=== PATIENT | male | born 1955 | race Caucasian/White ===

== ENCOUNTER 2018-03-18 08:27 | Outpatient (CLI) | payer BC ==
--- NOTE | 2018-03-18 10:26 | RAD ---
TWO VIEW CHEST SERIES: Indication: Dyspnea. FINDINGS: There is patchy left basilar opacity. Right lung is clear. Cardiac silhouette is within normal limits of size. There is mild elevation of the right hemidiaphragm. Mild osseous degenerative change is pre sent. IMPRESSION: Mild patchy left basilar density could relate to volume loss or pericardial fat pad. POS: [facility]
== END 2018-03-18 08:28 | disposition home or self-care (01) ==
LOC: RAD 08:27
PROVIDERS: ATTEND Internal Medicine Critical Care Medicine
DX: R06.00 Dyspnea, unspecified (principal); J98.4 Other disorders of lung
CPT/HCPCS: 71046

== ENCOUNTER 2018-05-29 07:33 | Outpatient (CLI) | payer BC ==
--- NOTE | 2018-05-29 10:27 | MRI ---
MRI LUMBAR SPINE WITHOUT CONTRAST: Date 05/29/18 HISTORY: Lumbar radiculopathy. Bilateral hamstring pain. COMPARISON: None. TECHNIQUE: MRI lumbar spine is performed without intravenous Gadolinium administration. Multisequential, multipl phyllis imaging is performed. FINDINGS: There is appropriate T1 marrow signal intensity of the lumbar vertebra. Intrinsic T1 and T2 hyperinte nsities throughout the lumbar spine representing fatty marrow versus hemangiomas. No significant STIR hyperintensity to suggest vertebral body edema or ligamentous injury. Symmetric signal intensity of the psoas muscles. Appropriate signal intensity of the visualized solid organs. Conus medullaris terminates at mid L1 level. T12-L1: Adequate disc hydration. No significant central canal stenosis. Neural foramina are patent. L1-L2: Adequate disc hydration. No significant central canal stenosis. Neural foramina are patent. L2-L3: Adequate disc hydration. Generalized disc bulge results in mid central canal stenosis. Right neural f oramen is patent. Mild left foraminal narrowing. L3-L4: Generalized disc bulge with a left paracentral component. Ligamentum flavum thickening and facet hype rtrophy are present. Overall, mild central canal stenosis. There is disc material abutting and partia lly obscuring bilateral traversing L4 nerve roots. Mild right and moderate left foraminal narrowing. L4-L5: Mild loss of disc space height. Generalized disc bulge, ligamentum flavum thickening, and facet hyper trophy result in minimal central canal stenosis. Minimal encroachment upon both subarticular zones. D isc material abuts, but does not obscure either traversing L5 nerve root. Moderate bilateral foramina l narrowing. L5-S1: Moderate loss of disc space height. There is a generalized disc bulge. There is no significant centra l canal stenosis. There is bilateral facet hypertrophy. There is narrowing of the left subarticular z one with partial obscuration of traversing left S1 nerve root. Moderate to severe right and severe le ft foraminal narrowing. IMPRESSION: 1. Degenerative disc disease at L4-L5 and L5-S1 as described above. There is significant bilateral f oraminal narrowing at L5-S1. 2. Narrowing of the subarticular zone at L3-L4, L4-L5, and L5-S1 as described above. POS: [facility]
== END 2018-05-29 07:34 | disposition home or self-care (01) ==
LOC: TBSIIMAG 07:33
PROVIDERS: ATTEND Orthopaedic Surgery
DX: M51.16 Intervertebral disc disorders with radiculopathy, lumbar region (principal); M51.37 Other intervertebral disc degeneration, lumbosacral region; M99.83 Other biomechanical lesions of lumbar region; M48.061 Spinal stenosis, lumbar region without neurogenic claudication; M48.07 Spinal stenosis, lumbosacral region
CPT/HCPCS: 72148

== ENCOUNTER 2020-11-15 10:40 | Outpatient (CLI) | payer BC | END 2020-11-15 10:41 | disposition home or self-care (01) | LOC: BICRAD 10:40 | PROVIDERS: ATTEND Family Medicine | DX: R06.02 Shortness of breath (principal); J98.4 Other disorders of lung | CPT/HCPCS: 71046 ==

== ENCOUNTER 2021-03-02 10:53 | Outpatient (CLI) | payer BC | END 2021-03-02 10:54 | disposition home or self-care (01) | LOC: BICRAD 10:53 | PROVIDERS: ATTEND Family Medicine | DX: R06.02 Shortness of breath (principal) | CPT/HCPCS: 71046 ==

== ENCOUNTER 2021-04-25 06:50 | Outpatient (CLI) | payer BC ==
[2021-04-25 08:52] LABS: Hemoglobin 14.5 g/dL (13.5-17.5)
[2021-04-25 10:14] LABS: Anion Gap 13 mmol/L (10-20); BUN (Urea Nitrogen) 16 mg/dL (8.4-25.7); Calc. Creatinine Clearance 0 mL/min (70-130); Calcium 9.5 mg/dL (7.8-10.44); Carbon Dioxide 26 mmol/L (23-31); Chloride 108 mmol/L (98-107); Glucose 92 mg/dL (80-115); Potassium 4.5 mmol/L (3.5-5.1); Sodium 142 mmol/L (136-145)
[2021-04-25 20:01] LABS: SARS-CoV-2 PCR by NAA Not Detected (NotDetected)
== END 2021-04-25 06:51 | disposition home or self-care (01) ==
LOC: LABBT 06:50
PROVIDERS: ATTEND Specialist
DX: Z01.818 Encounter for other preprocedural examination (principal); Z20.822 Contact with and (suspected) exposure to COVID-19
CPT/HCPCS: 70486; 80048; 85014; 85018; 93005; 93010; U0003; U0005

== ENCOUNTER 2022-12-05 08:33 | Outpatient (CLI) | payer BC ==
[2022-12-05 10:03] LABS: #Basophils 0.1 10x3/uL (0.0-0.2); #Eosinphils 0.2 10x3/uL (0.0-0.5); #Monocytes 0.8 10x3/uL (0.0-1.1); #Neutrophils 4.3 10x3/uL (1.5-8.4); %Basophils 0.9 % (0.0-2.0); %Eosinophils 2.5 % (0.0-6.0); %Lymphocytes 21.5 % (18.0-47.0); %Neutrophils 62.4 % (40.0-75.0); Hemoglobin 13.5 g/dL (13.5-17.5); Mean Corpuscular Hemoglobin 30.8 pg (27.0-33.0); Mean Corpuscular Volume 93.4 fl (81.2-95.1); Mean Platelet Volume 10.8 fl (7.4-10.4); Platelet Count 333 10x3/uL (150-450); RBC Distribution Width 12.5 % (11.5-14.5); Red Blood Cell (RBC) Count 4.38 10x6/uL (4.32-5.72); White Blood Cell (WBC) Count 6.9 10x3/uL (3.5-10.5)
[2022-12-05 10:17] LABS: Anion Gap 14 mmol/L (10-20); BUN (Urea Nitrogen) 12 mg/dL (8.4-25.7); Calc. Creatinine Clearance 0 mL/min (70-130); Calcium 9.2 mg/dL (7.8-10.44); Carbon Dioxide 25 mmol/L (23-31); Chloride 104 mmol/L (98-107); Estimated GFR 83; Glucose 98 mg/dL (80-115); Potassium 4.9 mmol/L (3.5-5.1); Sodium 138 mmol/L (136-145)
== END 2022-12-05 08:34 | disposition home or self-care (01) ==
LOC: LABBT 08:33
PROVIDERS: ATTEND Orthopaedic Surgery
DX: Z01.818 Encounter for other preprocedural examination (principal); M75.121 Complete rotator cuff tear or rupture of right shoulder, not specified as traumatic
CPT/HCPCS: 71046; 80048; 85025; 93005; 93010

== ENCOUNTER 2022-12-08 05:37 | Day surgery (SDC) | payer BC ==
[2022-12-05 13:18] VITALS: BMI 28.5
[2022-12-08] MEDS ORDERED: Vancomycin (BATCH) 1.5 GRAM/300 ML BAG ONE (06:07)
[2022-12-08] MEDS ORDERED: Tranexamic Acid 1,000 MG/10 ML VIAL ONE (06:07)
[2022-12-08] MEDS ORDERED: Sodium Chloride 0.9% 100 ML ONE ×2 (06:08→07:23)
[2022-12-08] MEDS ORDERED: Midazolam HCl 2 mg/2 ml Vial ONE ×2 (06:44→07:08)
[2022-12-08] MEDS ORDERED: fentaNYL 50 mcg/mL 1 mL Vial ONE (06:44)
[2022-12-08] MEDS ORDERED: fentaNYL PF 100 MCG/2 ML SYRINGE ONE ×2 (07:08→10:39)
[2022-12-08] MEDS ORDERED: Ondansetron PF 4 MG/2 ML Vial ONE (07:15)
[2022-12-08] MEDS ORDERED: Ketorolac Tromethamine 30 MG/ML VIAL ONE (07:15)
[2022-12-08] MEDS ORDERED: Dexamethasone 20 MG/5 ML VIAL ONE (07:15)
[2022-12-08] MEDS ORDERED: GLYCOPYRROLATE/PF 0.2 MG/ML VIAL ONE (07:15)
[2022-12-08] MEDS ORDERED: Rocuronium Bromide 10 MG/ML (10ML VIAL) ONE (07:15)
[2022-12-08] MEDS ORDERED: PROPOFOL 200 MG/20 ML VIAL ONE (07:15)
[2022-12-08] MEDS ORDERED: NEOSTIGMINE 3 MG/3 ML SYR 3 MG/3 ML SYRINGE ONE (07:15)
[2022-12-08] MEDS ORDERED: ePHEDrine Sulfate 50 MG/10 ML VIAL ONE (07:15)
[2022-12-08] MEDS ORDERED: CEFAZOLIN 2 GM VIAL ONE (07:23)
[2022-12-08] MEDS ORDERED: Ondansetron HCl/PF 4 MG/2 ML Vial IVP PRN (07:41)
[2022-12-08] MEDS ORDERED: Promethazine HCl 25 MG/ML VIAL IM PRN ×2 (07:41→08:15)
[2022-12-08] MEDS ORDERED: EPINEPHrine 1 MG/ML AMP ONE (07:44)
[2022-12-08] MEDS ORDERED: Bupivacaine PF 0.5% 30 ML VIAL ONE (07:44)
[2022-12-08] MEDS ORDERED: Zolpidem Tartrate 5 MG TAB PO PRN (08:15)
[2022-12-08] MEDS ORDERED: fentaNYL 50 mcg/mL 1 mL Vial SLOW IVP PRN (08:15)
[2022-12-08] MEDS ORDERED: HYDROcodone/Acetaminophen 10/325 mg Tablet PO PRN ×2 (08:15)
[2022-12-08] MEDS ORDERED: traMADol HCl 50 MG TAB PO PRN ×2 (08:15)
[2022-12-08] MEDS ORDERED: Ropivacaine 0.2% 550 ML 550 ML NERVE BLCK SCH (08:15)
[2022-12-08] MEDS ORDERED: Ondansetron PF 4 MG/2 ML Vial IVP PRN (08:15)
[2022-12-08] MEDS ORDERED: Ketorolac Tromethamine 30 MG/ML VIAL IVP SCH (12:00)
== END 2022-12-08 13:38 | disposition home or self-care (01) ==
LOC: SDC 05:37
PROVIDERS: ATTEND Orthopaedic Surgery
PROC: 0RNJ0ZZ Release Right Shoulder Joint, Open Approach (ICD-10-PCS; principal; 2022-12-08)
PROC: 0LM10ZZ Reattachment of Right Shoulder Tendon, Open Approach (ICD-10-PCS; principal; 2022-12-08)
PROC: 0RHJ04Z Insertion of Internal Fixation Device into Right Shoulder Joint, Open Approach (ICD-10-PCS; principal; 2022-12-08)
PROC: 0LS30ZZ Reposition Right Upper Arm Tendon, Open Approach (ICD-10-PCS; principal; 2022-12-08)
DX: M75.121 Complete rotator cuff tear or rupture of right shoulder, not specified as traumatic (principal); M25.811 Other specified joint disorders, right shoulder; S46.211A Strain of muscle, fascia and tendon of other parts of biceps, right arm, initial encounter; M25.311 Other instability, right shoulder; M19.011 Primary osteoarthritis, right shoulder; K21.9 Gastro-esophageal reflux disease without esophagitis; I10 Essential (primary) hypertension; E89.0 Postprocedural hypothyroidism; Z85.46 Personal history of malignant neoplasm of prostate; Z85.850 Personal history of malignant neoplasm of thyroid; Z86.16 Personal history of COVID-19; Z87.891 Personal history of nicotine dependence; Z79.890 Hormone replacement therapy; Z79.899 Other long term (current) drug therapy; Z88.2 Allergy status to sulfonamides
CPT/HCPCS: A4306; C1713; J0171; J1100; J1885; J2250; J2405; J2704; J2795; J3010; J3370; J3490; S0020